=== PATIENT | female | born 1965 | race Caucasian/White ===

== ENCOUNTER 2022-12-18 20:49 | Emergency (ER) | payer OTHER | END 2022-12-18 22:20 | disposition home or self-care (01) | LOC: JP.ED 20:49 | DX: S90.32XA Contusion of left foot, initial encounter (principal); Z88.2 Allergy status to sulfonamides; Z86.16 Personal history of COVID-19; Z72.0 Tobacco use; X50.1XXA Overexertion from prolonged static or awkward postures, initial encounter | CPT/HCPCS: 99283 ==